=== PATIENT | male | born 1990 | race Caucasian/White ===

== ENCOUNTER 2017-02-14 07:11 | Outpatient (CLI) | payer OTHER ==
--- NOTE | 2017-02-14 10:07 | MRI ---
CERVICAL SPINE MRI WITHOUT CONTRAST: HISTORY: Intervertebral disk disorder with radiculopathy. COMPARISON: 01/10/2016 TECHNIQUE: A cervical spine MRI is performed without intravenous Gadolinium administration. Multisequential, m ultiplanar imaging is performed. FINDINGS: Stable straightening of normal cervical lordosis. Appropriate T1 marrow signal intensity of the cer vical vertebrae. Cervical spine vertebral body height is maintained. No fracture. No significant STIR hyperintensity to suggest vertebral body edema or ligamentous injury. The visualized brain parenchyma, cervical medullary junction, cervical cord, and upper thoracic cord have normal size and signal intensity. C2-C3: No significant disk osteophyte complex. No significant central canal stenosis. Mild right foraminal narrowing. The left neural foramen is patent. C3-C4: Broad disk osteophyte complex abuts the thecal sac. The degree of central canal stenosis tolliver s not significantly progressed. Degenerative changes in the left and right uncovertebral joint resu lt in mild right and minimal left foraminal narrowing. C4-C5: No significant disk osteophyte complex. No significant central canal stenosis or foraminal narrowing. C5-C6: No significant disk osteophyte complex. No significant central canal stenosis. The neural foramen are patent. C6-C7: No significant disk osteophyte complex. No significant central canal stenosis. The right n eural foramen is patent. Mild left foraminal narrowing due to degenerative change of the uncoverteb ral joint. C7-T1: No significant disk osteophyte complex. No significant central canal stenosis. The neural foramen are patent. IMPRESSION: Degenerative changes of the cervical spine, as above. POS: [facility]
== END 2017-02-14 07:12 | disposition home or self-care (01) ==
LOC: MRI 07:11
PROVIDERS: ATTEND Nurse Practitioner Family
DX: M51.17 Intervertebral disc disorders with radiculopathy, lumbosacral region (principal); M47.812 Spondylosis without myelopathy or radiculopathy, cervical region
CPT/HCPCS: 72141